=== PATIENT | male | born 1950 | race Caucasian/White ===

== ENCOUNTER 2022-08-28 15:07 | Emergency (ER) | payer OTHER ==
[~2022-08-28] VITALS: Ht 182.9 cm; Wt 86.6 kg
--- NOTE | 2022-08-28 15:45 | NUR ---
pt to anisha medellin
[2022-08-28 15:53] VITALS: BP 164/115
[2022-08-28] MEDS ORDERED: PROM118S5 PO ×2 (16:20→16:25)
[2022-08-28] MEDS ORDERED: FLONAS NS ×2 (16:20→16:25)
[2022-08-28] MEDS ORDERED: ACET-10509 PO ×2 (16:20→16:25)
[2022-08-28] MEDS ORDERED: LORA10TA19 PO ×2 (16:20→16:25)
[2022-08-28 17:19] VITALS: BP 143/70
--- NOTE | 2022-08-28 17:19 | NUR ---
Patient discharged with v/s stable. Written and verbal after care instructions FOR UPPER RESPIRATORY INFECTION given and explained. Patient alert, oriented and verbalized understanding of instructions. Ambulatory with steady gait. All questions addressed prior to discharge. ID band removed. Patient advised to follow up with PMD. Rx of TYLENOL XTRA STRENGTH, FLONASE NASAL, CLARITIN AND PROMETHAZINE given. Opportunity to ask questions provided and answered.
== END 2022-08-28 17:19 | disposition home or self-care (01) ==
LOC: MED 15:07
DX: J06.9 Acute upper respiratory infection, unspecified (principal); I10 Essential (primary) hypertension; Z79.899 Other long term (current) drug therapy
CPT/HCPCS: 99283